=== PATIENT | male | born 1955 | race Caucasian/White ===

== ENCOUNTER 2016-11-30 11:25 | Emergency (ER) | payer BC ==
[2016-11-30] MEDS ORDERED: HYDROmorphone 1 MG/ML 1 ML SYRINGE IVP STA (11:33)
[2016-11-30] MEDS ORDERED: SODIUM CHLORIDE 0.9% 1,000 ML IV STA (11:33)
[2016-11-30] MEDS ORDERED: RX INFO: IV CONTRAST WAS GIVEN 1 EACH MISC MISCELLANE PRN (11:33)
[2016-11-30] MEDS ORDERED: ONDANSETRON 4 MG/2 ML VIAL IVP STA (11:33)
[2016-11-30] MEDS ORDERED: LABETALOL SYRINGE 5 MG/ML IVP STA (11:37)
--- NOTE | 2016-11-30 11:40 | ED ---
General Adult HPI - General Chief complaint: Abdominal Pain Stated complaint: poss Kidney Stone Time Seen by Provider: 11/30/16 11:30 Source: patient, RN notes reviewed Mode of arrival: ambulatory Limitations: no limitations - History of Present Illness Initial comments: This is a 61-year-old male who presents to the emergency department complaining of back pain bilaterally that was sudden in onset. Patient states the pain is severe. She also complains of some mid epigastric abdominal pain. Patient denies nausea vomiting or diarrhea. Patient states his only past medical history is high blood pressure. Patient states the pain is a 10 out of 10 currently. Patient denies any chest pain or palpitations. Patient denies any difficulty breathing or shortness of breath. Patient denies any headache patient denies numbness weakness. Patient denies any lightheadedness dizziness or near syncopal episode. Patient denies any neck pain. Patient states he has not had similar pain in the past. Patient denies any dysuria hematuria urinary frequency. - Related Data Home Medications Medication Instructions Recorded Confirmed Ibuprofen [Motrin] 400 mg PO Q6HR PRN 11/30/16 11/30/16 Lisinopril [Prinivil] 10 mg PO DAILY 11/30/16 11/30/16 Previous Rx's Medication Instructions Recorded Ibuprofen [Motrin] 600 mg PO Q6HR PRN #20 tab 11/30/16 Orphenadrine [Norflex] 100 mg PO Q12H #20 tablet.er 11/30/16 Allergies Allergy/AdvReac Type Severity Reaction Status Date / Time No Known Allergies Allergy Verified 11/30/16 11:28 Review of Systems ROS Statement: Those systems with pertinent positive or pertinent negative responses have been documented in the HPI. ROS Other: All systems not noted in ROS Statement are negative. Past Medical History Past Medical History: Hypertension History of Any Multi-Drug Resistant Organisms: None Reported Past Surgical History: No Surgical Hx Reported Past Psychological History: No Psychological Hx Reported Smoking Status: Never smoker Past Alcohol Use History: Occasional Past Drug Use History: None Reported General Exam - General Exam Comments Initial Comments: GENERAL: Patient is well-developed and well-nourished. Patient is nontoxic and well- hydrated and is in moderate distress. ENT: Neck is soft and supple. No significant lymphadenopathy is noted. Oropharynx is clear. Moist mucous membranes. Neck has full range of motion without eliciting any pain. EYES: The sclera were anicteric and conjunctiva were pink and moist. Extraocular movements were intact and pupils were equal round and reactive to light. Eyelids were unremarkable. PULMONARY: Unlabored respirations. Good breath sounds bilaterally. No audible rales rhonchi or wheezing was noted. CARDIOVASCULAR: There is a regular rate and rhythm without any murmurs gallops or rubs. ABDOMEN: Patient has epigastric and supraumbilical tenderness. I did not feel any pulsatile masses SKIN: Skin is clear with no lesions or rashes and otherwise unremarkable. NEUROLOGIC: Patient is alert and oriented x3. Cranial nerves II through XII are grossly intact. Motor and sensory are also intact. Normal speech, volume and content. Symmetrical smile. MUSCULOSKELETAL: Normal extremities with adequate strength and full range of motion. No lower extremity swelling or edema. No calf tenderness. LYMPHATICS: No significant lymphadenopathy is noted PSYCHIATRIC: Normal psychiatric evaluation. Limitations: no limitations Course Vital Signs 11/30/16 11/30/16 11/30/16 11:28 11:41 11:51 Temperature 96.8 F L Pulse Rate 74 59 L 69 Respiratory 16 16 14 Rate Blood Pressure 183/112 189/115 148/96 O2 Sat by Pulse 98 100 100 Oximetry 11/30/16 11/30/16 11/30/16 12:36 13:06 13:33 Temperature Pulse Rate 61 55 L 60 Respiratory 15 16 14 Rate Blood Pressure 143/95 144/82 147/95 O2 Sat by Pulse 98 100 98 Oximetry 11/30/16 14:36 Temperature 97.8 F Pulse Rate 79 Respiratory 15 Rate Blood Pressure 173/111 O2 Sat by Pulse 99 Oximetry Medical Decision Making - Medical Decision Making EKG shows sinus rhythm at 69 bpm VT interval 146 QRS is 86 QT interval is 408 QTC is 437. Patient's EKG shows no ST segment elevation or depression or T- wave abnormality is noted. CT of the abdomen and pelvis was normal. Patient received Dilaudid and Toradol the Toradol really seem to help him and he states his pain is on was completely gone at this time. - Lab Data Result diagrams: 11/30/16 11:40 11/30/16 11:40 Lab Results 11/30/16 11/30/16 11/30/16 Range/Units 11:40 11:40 11:40 WBC 7.3 (3.8-10.6) k/uL RBC 5.12 (4.30-5.90) m/uL Hgb 16.0 (13.0-17.5) gm/dL Hct 46.8 (39.0-53.0) % MCV 91.5 (80.0-100.0) fL MCH 31.3 (25.0-35.0) pg MCHC 34.2 (31.0-37.0) g/dL RDW 12.7 (11.5-15.5) % Plt Count 211 (150-450) k/uL Neutrophils % 73 % Lymphocytes % 13 % Monocytes % 8 % Eosinophils % 2 % Basophils % 1 % Neutrophils # 5.3 (1.3-7.7) k/uL Lymphocytes # 1.0 (1.0-4.8) k/uL Monocytes # 0.6 (0-1.0) k/uL Eosinophils # 0.2 (0-0.7) k/uL Basophils # 0.1 (0-0.2) k/uL PT (9.0-12.0) sec INR (<1.1) APTT (22.0-30.0) sec Sodium 140 (137-145) mmol/L Potassium 4.2 (3.5-5.1) mmol/L Chloride 105 (98-107) mmol/L Carbon Dioxide 25 (22-30) mmol/L Anion Gap 10 mmol/L BUN 13 (9-20) mg/dL Creatinine 0.85 (0.66-1.25) mg/dL Est GFR (MDRD) Af Amer >60 (>60 ml/min/1.73 sqM) Est GFR (MDRD) Non-Af >60 (>60 ml/min/1.73 sqM) Glucose 117 H (74-99) mg/dL Plasma Lactic Acid Apolinar 1.9 (0.7-2.0) mmol/L Calcium 8.7 (8.4-10.2) mg/dL Total Bilirubin 0.7 (0.2-1.3) mg/dL AST 29 (17-59) U/L ALT 43 (21-72) U/L Alkaline Phosphatase 118 (38-126) U/L Total Protein 7.4 (6.3-8.2) g/dL Albumin 4.3 (3.5-5.0) g/dL Amylase 61 (30-110) U/L Lipase 71 (23-300) U/L Urine Color Urine Appearance (Clear) Urine pH (5.0-8.0) Ur Specific [place] (1.001-1.035) Urine Protein (Negative) Urine Glucose (UA) (Negative) Urine Ketones (Negative) Urine Blood (Negative) Urine Nitrate (Negative) Urine Bilirubin (Negative) Urine Urobilinogen (<2.0) mg/dL Ur Leukocyte Esterase (Negative) Urine RBC (0-5) /hpf Urine WBC (0-5) /hpf Urine Mucus (None) /hpf 11/30/16 11/30/16 Range/Units 11:40 12:55 WBC (3.8-10.6) k/uL RBC (4.30-5.90) m/uL Hgb (13.0-17.5) gm/dL Hct (39.0-53.0) % MCV (80.0-100.0) fL MCH (25.0-35.0) pg MCHC (31.0-37.0) g/dL RDW (11.5-15.5) % Plt Count (150-450) k/uL Neutrophils % % Lymphocytes % % Monocytes % % Eosinophils % % Basophils % % Neutrophils # (1.3-7.7) k/uL Lymphocytes # (1.0-4.8) k/uL Monocytes # (0-1.0) k/uL Eosinophils # (0-0.7) k/uL Basophils # (0-0.2) k/uL PT 10.0 (9.0-12.0) sec INR 1.0 (<1.1) APTT 24.0 (22.0-30.0) sec Sodium (137-145) mmol/L Potassium (3.5-5.1) mmol/L Chloride (98-107) mmol/L Carbon Dioxide (22-30) mmol/L Anion Gap mmol/L BUN (9-20) mg/dL Creatinine (0.66-1.25) mg/dL Est GFR (MDRD) Af Amer (>60 ml/min/1.73 sqM) Est GFR (MDRD) Non-Af (>60 ml/min/1.73 sqM) Glucose (74-99) mg/dL Plasma Lactic Acid Apolinar (0.7-2.0) mmol/L Calcium (8.4-10.2) mg/dL Total Bilirubin (0.2-1.3) mg/dL AST (17-59) U/L ALT (21-72) U/L Alkaline Phosphatase (38-126) U/L Total Protein (6.3-8.2) g/dL Albumin (3.5-5.0) g/dL Amylase (30-110) U/L Lipase (23-300) U/L Urine Color Light Yellow Urine Appearance Clear (Clear) Urine pH 5.5 (5.0-8.0) Ur Specific [place] 1.039 H (1.001-1.035) Urine Protein Negative (Negative) Urine Glucose (UA) Negative (Negative) Urine Ketones Negative (Negative) Urine Blood Trace H (Negative) Urine Nitrate Negative (Negative) Urine Bilirubin Negative (Negative) Urine Urobilinogen <2.0 (<2.0) mg/dL Ur Leukocyte Esterase Negative (Negative) Urine RBC 3 (0-5) /hpf Urine WBC <1 (0-5) /hpf Urine Mucus Rare H (None) /hpf Disposition Clinical Impression: Lumbar strain Disposition: HOME SELF-CARE Condition: Good Instructions: Low Back Strain (ED) Prescriptions: Ibuprofen [Motrin] 600 mg PO Q6HR PRN #20 tab PRN Reason: For pain Orphenadrine [Norflex] 100 mg PO Q12H #20 tablet.er Referrals: Jose Guadalupe Tapia MD [Primary Care Provider] - 1-2 days Time of Disposition: 14:12
[2016-11-30 11:51] LABS: Basophils # (A) 0.1 k/uL (0-0.2); Basophils % (A) 1 %; CH 31.8; CHCM 34.9; Eosinophils # (A) 0.2 k/uL (0-0.7); Eosinophils % (A) 2 %; HCT 46.8 % (39.0-53.0); HDW 2.66; Luc # (Auto) 0.21; Luc % (Auto) 3; Lymphocytes % (A) 13 %; MCH 31.3 pg (25.0-35.0); MCHC 34.2 g/dL (31.0-37.0); MCV 91.5 fL (80.0-100.0); Monocytes # (A) 0.6 k/uL (0-1.0); Monocytes % (A) 8 %; Neutrophils # (A) 5.3 k/uL (1.3-7.7); Neutrophils % (A) 73 %; RBC 5.12 m/uL (4.30-5.90); RDW 12.7 % (11.5-15.5); WBC 7.3 k/uL (3.8-10.6); WBC (Perox) 6.94
[2016-11-30 12:05] LABS: ALT 43 U/L (21-72); AST 29 U/L (17-59); Alkaline Phosphatase 118 U/L (38-126); Amylase 61 U/L (30-110); Anion Gap 10 mmol/L; Blood Urea Nitrogen 13 mg/dL (9-20); Calcium 8.7 mg/dL (8.4-10.2); Carbon Dioxide 25 mmol/L (22-30); Chloride 105 mmol/L (98-107); Glucose 117 mg/dL (74-99); Non-African American GFR(MDRD) >60 (>60 ml/min/1.73 sqM); Potassium 4.2 mmol/L (3.5-5.1); Sodium 140 mmol/L (137-145); Total Bilirubin 0.7 mg/dL (0.2-1.3); Total Protein 7.4 g/dL (6.3-8.2)
--- NOTE | 2016-11-30 12:32 | CT ---
EXAMINATION TYPE: CT abdomen pelvis w con DATE OF EXAM: 11/30/2016 12:16 PM COMPARISON: NONE HISTORY: Mid Abdominal pain with bloating CT DLP: 1636 mGycm, Automated Exposure Control for Dose Reduction was Utilized. CONTRAST: CT scan of the abdomen and pelvis is performed without oral and with IV Contrast, patient injected wi th 100 mL of Omnipaque 300. FINDINGS: LUNG BASES: No significant abnormality is appreciated. LIVER/GB: No significant abnormality is appreciated. PANCREAS: No significant abnormality is seen. SPLEEN: No significant abnormality is seen. ADRENALS: No significant abnormality is seen. KIDNEYS: No significant abnormality is seen. BOWEL: Evaluation of bowel is suboptimal due to lack of enteric contrast. There is no suspicious smal l or large bowel dilatation identified. Appendix is felt within normal limits ascending from the cecu m. Scattered diverticula throughout the colon are identified. There is mild to moderate wall thickening involving the left colon and proximal to mid sigmoid colon as well as involving the rectum. Finding c ould be product of poor distention but a colitis needs to BE excluded clinically. PROSTATE/SEMINAL VESICLES: Seminal vesicles are bulky is slightly prominent, indistinct margin from p rostate gland is noted. A few scattered pelvic phleboliths are present. LYMPH NODES: No greater than 1cm abdominal or pelvic lymph nodes are appreciated. OSSEOUS STRUCTURES: Vacuum disc phenomenon lower lumbar levels is seen. There is multilevel spurring in the mid thoracic spine identified. OTHER: No significant additional abnormality is seen. IMPRESSION: Cannot exclude a multifocal mild colitis on this study performed without oral contrast ot herwise no significant finding is seen to account for patient's symptoms.
[2016-11-30] MEDS ORDERED: KETOROLAC 60 MG/2 ML VIAL IVP STA (12:40)
[2016-11-30 13:19] LABS: Appearance,Urine Clear (Clear); Bilirubin,Urine Negative (Negative); Glucose,Urine (UA) Negative (Negative); Ketones,Urine Negative (Negative); Leukocyte Esterase,Urine Negative (Negative); Mucus,Urine Rare /hpf; Nitrite,Urine Negative (Negative); PH, Urine 5.5 (5.0-8.0); Particle Count 416; Protein,Urine Negative (Negative); RBC,Urine 3 /hpf (0-5); Specific Gravity,Urine 1.039 (1.001-1.035); UA Billing (MACRO vs. MICRO) MICRO; Urobilinogen,Urine <2.0 mg/dL (<2.0); WBC,Urine <1 /hpf (0-5)
[2016-11-30] MEDS ORDERED: ORPHENADRINE 30 MG/ML 2 ML VIAL IM STA (14:14)
[2016-11-30] MEDS ORDERED: LISINOPRIL 10 MG TAB PO STA (15:05)
[2016-11-30 15:12] VITALS: BP 175/109; PULSE 57; RESP 14; TEMP 98
== END 2016-11-30 15:15 | disposition home or self-care (01) ==
LOC: EC 11:25
DX: S39.012A Strain of muscle, fascia and tendon of lower back, initial encounter (principal); R10.13 Epigastric pain; I10 Essential (primary) hypertension; Z79.899 Other long term (current) drug therapy; X58.XXXA Exposure to other specified factors, initial encounter
CPT/HCPCS: 99284; 96374; 96375 ×3; 96361; 96372; 36415; 93005; 80053; 82150; 83605; 83690; 85025; 85610; 85730; 81001; 74177; J2360; J2405; J1885; J1170; Q9967

== ENCOUNTER → 2022-10-20 | Outpatient (CLI) | payer BC ==
[2022-10-21 14:37] LABS: Alt. alternata IgE Class CLASS 0; Alternaria alternata IgE <0.10 kU/L (<0.10); Asperg. fumagatus IgE <0.10 kU/L (<0.10); Asperg. fumagatus IgE Class CLASS 0; Candida albicans IgE Class CLASS 0; Clad herbarum IgE <0.10 kU/L (<0.10); Clad herbarum IgE Class CLASS 0; Latex IgE Class CLASS 0; Mucor racemosus IgE <0.10 kU/L (<0.10); Mucor racemosus IgE Class CLASS 0; Penicillium chrysogenum IgE <0.10 kU/L (<0.10); Penicillium chrysogenum IgE Cl CLASS 0
== END | disposition home or self-care (01) ==
LOC: LABWHC1 12:37
PROVIDERS: ATTEND Internal Medicine Sleep Medicine
DX: B44.81 Allergic bronchopulmonary aspergillosis (principal)
CPT/HCPCS: 36415; 86001; 86003; 86606; 86609

== ENCOUNTER 2023-05-03 18:34 | Inpatient (IN) | payer OTHER, MEDICARE ==
[2023-05-03] MEDS ORDERED: KETOROLAC 15 MG/ML 1 ML VIAL IVP STA (19:11)
[2023-05-03] MEDS ORDERED: SODIUM CHLORIDE 0.9% 1,000 ML IV STA (19:11)
--- NOTE | 2023-05-03 19:33 | ED ---
Abdominal Pain HPI - General Chief Complaint: Abdominal Pain Stated Complaint: abd/back pain Time Seen by Provider: 05/03/23 18:57 Source: patient, RN notes reviewed Mode of arrival: ambulatory Limitations: no limitations - History of Present Illness Initial Comments: This is a 68-year-old male who presents to the emergency department for abdominal pain. States that around 6 AM this morning, he started to develop pain in the mid abdomen that wrapped around into the back. He tried to go work a 4 hour shift, and states that the pain persisted. He did have a few episodes of nausea and vomiting as well. Denies any history of similar symptoms in the past. States that he had chili for dinner last night, which is not out of the ordinary for him. States that he has been belching much more than normal today. He had a bowel movement this morning but has not passed gas in several hours. Denies any fevers, chills, sore throat, cough, dyspnea, chest pain, palpitations, diarrhea, or headaches. Pt is a Oriental orthodox - no blood transfusions MD Complaint: abdominal pain - Related Data Home Medications Medication Instructions Recorded Confirmed Atorvastatin [Lipitor] 20 mg PO HS 05/03/23 05/03/23 Losartan [Cozaar] 50 mg PO DAILY 05/03/23 05/03/23 Montelukast Sodium 10 mg PO HS 05/03/23 05/03/23 Omeprazole [PriLOSEC] 20 mg PO DAILY PRN 05/03/23 05/03/23 Allergies Allergy/AdvReac Type Severity Reaction Status Date / Time No Known Allergies Allergy Verified 05/03/23 18:40 Review of Systems ROS Statement: Those systems with pertinent positive or pertinent negative responses have been documented in the HPI. ROS Other: All systems not noted in ROS Statement are negative. Past Medical History Past Medical History: Hyperlipidemia, Hypertension History of Any Multi-Drug Resistant Organisms: None Reported Past Surgical History: No Surgical Hx Reported Past Psychological History: No Psychological Hx Reported Past Alcohol Use History: Occasional Past Drug Use History: None Reported General Exam Limitations: no limitations General appearance: alert, in no apparent distress Head exam: Present: atraumatic, normocephalic, normal inspection Respiratory exam: Present: normal lung sounds bilaterally. Absent: respiratory distress, wheezes, rales, rhonchi, stridor Cardiovascular Exam: Present: regular rate, normal rhythm, normal heart sounds. Absent: systolic murmur, diastolic murmur, rubs, gallop, clicks GI/Abdominal exam: Present: soft, tenderness (centralized), normal bowel sounds. Absent: distended, guarding, rebound, rigid Neurological exam: Present: alert, oriented X3, CN II-XII intact Psychiatric exam: Present: normal affect, normal mood Skin exam: Present: warm, dry, intact, normal color. Absent: rash Course Vital Signs 05/03/23 05/03/23 05/03/23 18:37 19:00 20:01 Temperature 98.1 F Pulse Rate 73 68 64 Respiratory 16 15 18 Rate Blood Pressure 181/114 166/108 177/110 O2 Sat by Pulse 97 97 97 Oximetry 05/03/23 05/03/23 05/03/23 21:00 22:32 22:54 Temperature Pulse Rate 63 62 62 Respiratory 16 24 16 Rate Blood Pressure 168/101 181/120 165/107 O2 Sat by Pulse 98 98 97 Oximetry 05/03/23 05/03/23 23:21 23:36 Temperature Pulse Rate 61 63 Respiratory 16 16 Rate Blood Pressure 156/106 149/97 O2 Sat by Pulse 97 97 Oximetry Medical Decision Making - Medical Decision Making This is a 68-year-old male who presents to the emergency department for abdominal pain. Was pt. sent in by a medical professional or institution? @ -No Did you speak to anyone other than the patient for history? @ -No Did you review nursing and triage notes? @ -Yes, and I agree, it is accurate with regards to the patient's symptoms. Were old charts reviewed? @ -No Differential Diagnosis? @ -Differential Abdominal Pain Men: Appendicitis, cholecystitis, diverticulosis, ischemic bowel, pancreatitis, hepatitis, UTI, gastroenteritis, AAA, incarcerated hernia, bowel obstruction, constipation, inflammatory bowel, hepatitis, peptic ulcer disease, splenic infarction, perforated viscus, testicular torsion, this is not meant to be an all-inclusive list EKG interpreted by me (3pts min.)? @ -EKG interpreted by me demonstrating the following: Sinus rhythm. Ventricular rate 67 beats per minute, NE interval 173 ms, QRS duration 87 ms, QTC 409 ms. X-rays interpreted by me (1pt min.)? @ -Abdominal x-ray obtained. My interpretation confirms appropriate placement of NG tube. CT interpreted by me (1pt min.)? @ -Computed tomography scan of the abdomen and pelvis obtained. My interpretation identifies dilated small bowel loops. U/S interpreted by me (1pt. min.)? @ -Not obtained What testing was considered but not performed? (CT, X-rays, U/S, labs)? Why? @ -None What meds were considered but not given? Why? @ -None Did you discuss the management of the patient with other professionals? @ -Yes, Jeff Fuchs with [facility], who accepts the patient for admission. Did you reconcile home meds? @ -Yes Was smoking cessation discussed for >3mins.? @ -No Was critical care preformed (if so, how long)? @ -No Were there social determinants of health that impacted care today? How? (Homelessness, low income, unemployed, alcoholism, drug addiction, transportation, low edu. Level, literacy, decrease access to med. care, senior living, rehab)? @ -No Was there de-escalation of care discussed even if they declined? (Discuss DNR or withdrawal of care, Hospice)? @ -No What co-morbidities impacted this encounter? (DM, HTN, Smoking, COPD, CAD, Cancer, CVA, Hep., AIDS, mental health diagnosis, sleep apnea, morbid obesity)? @ -HTN, HLD Was patient admitted / discharged? @ -Admitted. Lab work obtained and found to be nonactionable. Given the progressive nature of the patient's pain, his age, and because he has stopped passing gas, computed tomography scan of the abdomen and pelvis was obtained. This revealed multiple dilated small bowel loops suspicious for partial or early complete small bowel obstruction. NG tube was placed and placement was con firmed with an abdominal x-ray. It was then hooked up to intermittent low wall suction. Patient kept NPO for the mean time. BP was fairly elevated in the emergency department. He was subsequently given Hydralazine, 10mg and prn hydralazine was ordered with instructions to administer q6h prn BP >160 systolically. Patient admitted to medicine with general surgery consult for small bowel obstruction. Of note, patient is a Oriental orthodox and cannot receive blood products. Undiagnosed new problem with uncertain prognosis? @ -None Drug Therapy requiring intensive monitoring for toxicity (Heparin, Nitro, Insulin, Cardizem)? @ -None Were any procedures done? @ -None Diagnosis/symptom? @ -Small bowel obstruction Acute, or Chronic, or Acute on Chronic? @ -Acute Uncomplicated (without systemic symptoms) or Complicated (systemic symptoms)? @ -Complicated Side effects of treatment? @ -None Exacerbation, Progression, or Severe Exacerbation] @ -Not applicable Poses a threat to life or bodily function? @ -Yes This case was discussed in detail with the attending ED physician, Dr. Perez. Presentation, findings, and treatment plan discussed in detail as well. - Lab Data Result diagrams: 05/03/23 19:59 05/03/23 19:59 Lab Results 05/03/23 05/03/23 05/03/23 Range/Units 19:59 19:59 19:59 WBC 8.2 (3.8-10.6) k/uL RBC 5.07 (4.30-5.90) m/uL Hgb 16.1 (13.0-17.5) gm/dL Hct 46.6 (39.0-53.0) % MCV 92.0 (80.0-100.0) fL MCH 31.7 (25.0-35.0) pg MCHC 34.5 (31.0-37.0) g/dL RDW 12.2 (11.5-15.5) % Plt Count 194 (150-450) k/uL MPV 7.7 Neutrophils % 82 % Lymphocytes % 9 % Monocytes % 6 % Eosinophils % 1 % Basophils % 1 % Neutrophils # 6.7 (1.3-7.7) k/uL Lymphocytes # 0.7 L (1.0-4.8) k/uL Monocytes # 0.5 (0-1.0) k/uL Eosinophils # 0.1 (0-0.7) k/uL Basophils # 0.1 (0-0.2) k/uL Sodium 131 L (137-145) mmol/L Potassium 4.5 (3.5-5.1) mmol/L Chloride 98 (98-107) mmol/L Carbon Dioxide 25 (22-30) mmol/L Anion Gap 8 mmol/L BUN 17 (9-20) mg/dL Creatinine 0.74 (0.66-1.25) mg/dL Est GFR (CKD-EPI)AfAm >90 (>60 ml/min/1.73 sqM) Est GFR (CKD-EPI)NonAf >90 (>60 ml/min/1.73 sqM) Glucose 132 H (74-99) mg/dL Plasma Lactic Acid Apolinar 1.3 (0.7-2.0) mmol/L Calcium 9.0 (8.4-10.2) mg/dL Total Bilirubin 1.0 (0.2-1.3) mg/dL AST 26 (17-59) U/L ALT 25 (4-49) U/L Alkaline Phosphatase 113 (38-126) U/L Troponin I (0.000-0.034) ng/mL Total Protein 7.4 (6.3-8.2) g/dL Albumin 4.2 (3.5-5.0) g/dL Amylase 56 (30-110) U/L Lipase 58 (23-300) U/L Urine Color Urine Appearance (Clear) Urine pH (5.0-8.0) Ur Specific [place] (1.001-1.035) Urine Protein (Negative) Urine Glucose (UA) (Negative) Urine Ketones (Negative) Urine Blood (Negative) Urine Nitrite (Negative) Urine Bilirubin (Negative) Urine Urobilinogen (<2.0) mg/dL Ur Leukocyte Esterase (Negative) Urine RBC (0-5) /hpf Ur Squamous Epith Cells (0-4) /hpf Urine Mucus (None) /hpf 05/03/23 05/03/23 Range/Units 19:59 21:17 WBC (3.8-10.6) k/uL RBC (4.30-5.90) m/uL Hgb (13.0-17.5) gm/dL Hct (39.0-53.0) % MCV (80.0-100.0) fL MCH (25.0-35.0) pg MCHC (31.0-37.0) g/dL RDW (11.5-15.5) % Plt Count (150-450) k/uL MPV Neutrophils % % Lymphocytes % % Monocytes % % Eosinophils % % Basophils % % Neutrophils # (1.3-7.7) k/uL Lymphocytes # (1.0-4.8) k/uL Monocytes # (0-1.0) k/uL Eosinophils # (0-0.7) k/uL Basophils # (0-0.2) k/uL Sodium (137-145) mmol/L Potassium (3.5-5.1) mmol/L Chloride (98-107) mmol/L Carbon Dioxide (22-30) mmol/L Anion Gap mmol/L BUN (9-20) mg/dL Creatinine (0.66-1.25) mg/dL Est GFR (CKD-EPI)AfAm (>60 ml/min/1.73 sqM) Est GFR (CKD-EPI)NonAf (>60 ml/min/1.73 sqM) Glucose (74-99) mg/dL Plasma Lactic Acid Apolinar (0.7-2.0) mmol/L Calcium (8.4-10.2) mg/dL Total Bilirubin (0.2-1.3) mg/dL AST (17-59) U/L ALT (4-49) U/L Alkaline Phosphatase (38-126) U/L Troponin I <0.012 (0.000-0.034) ng/mL Total Protein (6.3-8.2) g/dL Albumin (3.5-5.0) g/dL Amylase (30-110) U/L Lipase (23-300) U/L Urine Color Yellow Urine Appearance Clear (Clear) Urine pH 6.5 (5.0-8.0) Ur Specific [place] 1.020 (1.001-1.035) Urine Protein Negative (Negative) Urine Glucose (UA) Negative (Negative) Urine Ketones 1+ H (Negative) Urine Blood Small H (Negative) Urine Nitrite Negative (Negative) Urine Bilirubin Negative (Negative) Urine Urobilinogen <2.0 (<2.0) mg/dL Ur Leukocyte Esterase Negative (Negative) Urine RBC 5 (0-5) /hpf Ur Squamous Epith Cells <1 (0-4) /hpf Urine Mucus Occasional H (None) /hpf - Radiology Data Radiology results: report reviewed, image reviewed Disposition Clinical Impression: Small bowel obstruction Disposition: ADMITTED IP TO THIS HOSP
[2023-05-03 20:21] LABS: Basophils # (A) 0.1 k/uL (0-0.2); Basophils % (A) 1 %; Eosinophils # (A) 0.1 k/uL (0-0.7); Eosinophils % (A) 1 %; HCT 46.6 % (39.0-53.0); HGB 16.1 gm/dL (13.0-17.5); Lymphocytes # (A) 0.7 k/uL (1.0-4.8); Lymphocytes % (A) 9 %; MCH 31.7 pg (25.0-35.0); MCHC 34.5 g/dL (31.0-37.0); Mean Platelet Volume 7.7; Monocytes # (A) 0.5 k/uL (0-1.0); Monocytes % (A) 6 %; Neutrophils # (A) 6.7 k/uL (1.3-7.7); Neutrophils % (A) 82 %; Platelet Count 194 k/uL (150-450); RBC 5.07 m/uL (4.30-5.90); RDW 12.2 % (11.5-15.5); WBC 8.2 k/uL (3.8-10.6)
[2023-05-03 20:38] LABS: ALT 25 U/L (4-49); AST 26 U/L (17-59); African American GFR (CKD) >90 (>60 ml/min/1.73 sqM); Albumin 4.2 g/dL (3.5-5.0); Alkaline Phosphatase 113 U/L (38-126); Amylase 56 U/L (30-110); Anion Gap 8 mmol/L; Blood Urea Nitrogen 17 mg/dL (9-20); Carbon Dioxide 25 mmol/L (22-30); Chloride 98 mmol/L (98-107); Glucose 132 mg/dL (74-99); Lipase 58 U/L (23-300); Non-African American GFR(CKD) >90 (>60 ml/min/1.73 sqM); Potassium 4.5 mmol/L (3.5-5.1); Sodium 131 mmol/L (137-145); Total Protein 7.4 g/dL (6.3-8.2)
[2023-05-03] MEDS ORDERED: MORPHINE SULFATE 2 MG/ML SYRINGE IVP STA (21:08)
--- NOTE | 2023-05-03 21:23 | CT ---
EXAMINATION TYPE: CT abdomen pelvis w con CT DLP: 1774 mGycm, Automated exposure control for dose reduction was used. DATE OF EXAM: 05/03/2023 9:04 PM COMPARISON: 11/30/2016 CLINICAL INDICATION:Male, 68 years old with history of abdominal pain, acute, nonlocalized; Upper abd ominal pain that radiates into his back TECHNIQUE: Axial CT of the abdomen and pelvis. Sagittal and coronal reformats were created on a [employer] workstation. Contrast used:100 ml mL of Isovue 300 with IV Contrast, (none if empty) Oral contrast used: without Oral Contrast (none if empty) FINDINGS: LOWER CHEST: Unremarkable ABDOMEN LIVER: Unremarkable GALLBLADDER AND BILE DUCTS: Unremarkable. PANCREAS: Within normal limits. No evidence for pancreatitis. SPLEEN: Unremarkable. ADRENAL GLANDS: Unremarkable. KIDNEYS AND URETERS: No evidence of hydronephrosis or renal calculus. The ureters are unremarkable. PELVIS BLADDER: Unremarkable REPRODUCTIVE: Unremarkable. ABDOMEN & PELVIS STOMACH AND BOWEL: Dilated loops of small bowel in the upper abdomen dilated up to 3.1 cm. Relative n ondistention of the distal loops of bowel. Transition point not definitively visualized Scattered col onic diverticula. PERITONEUM/RETROPERITONEUM: No evidence of pneumoperitoneum or free fluid. VASCULATURE: No evidence of aortic aneurysm. MUSCULOSKELETAL: No acute osseous abnormalities LYMPH NODES: No gross evidence for lymphadenopathy. SOFT TISSUE/ABDOMINAL WALL: Fatty changes at bilateral inguinal canals. IMPRESSION: 1. Multiple dilated loops of small bowel findings suspicious for partial or early complete bowel obs truction. Clinical correlation and consideration for dedicated small bowel follow-through is recommen ded. Transition point not definitively visualized. 2. No evidence for aortic dissection or aortic aneurysm. 3. Colonic diverticulosis.
[2023-05-03 21:33] LABS: Appearance,Urine Clear (Clear); Bilirubin,Urine Negative (Negative); Blood,Urine Small (Negative); Color,Urine Yellow; Glucose,Urine (UA) Negative (Negative); Ketones,Urine 1+ (Negative); Leukocyte Esterase,Urine Negative (Negative); Mucus,Urine Occasional /hpf; Nitrite,Urine Negative (Negative); PH, Urine 6.5 (5.0-8.0); Protein,Urine Negative (Negative); RBC,Urine 5 /hpf (0-5); Squamous Epithelial Cell,Urine <1 /hpf (0-4); Urobilinogen,Urine <2.0 mg/dL (<2.0)
[2023-05-03] MEDS ORDERED: hydrALAZINE HCL 20 MG/ML 1 ML VIAL IVP STA (21:50)
[2023-05-03] MEDS ORDERED: HYDROmorphone 1 MG/ML 1 ML SYRINGE IVP PRN (21:51)
[2023-05-03] MEDS ORDERED: NALOXONE 0.4 MG/ML 1 ML VIAL IV PRN (21:51)
[2023-05-03] MEDS ORDERED: HYDROmorphone 0.5 MG/0.5 ML SYRINGE IVP PRN (21:51)
[2023-05-03] MEDS ORDERED: ACETAMINOPHEN TAB 325 MG TAB PO PRN (21:51)
[2023-05-03] MEDS: MONTELUKAST 10 MG TAB PO SCH (22:13)
[2023-05-03] MEDS: ATORVASTATIN 20 MG TAB PO SCH (22:13)
[2023-05-03] MEDS: SODIUM CHLORIDE 0.9% 1,000 ML IV SCH (22:31)
[2023-05-03] MEDS ORDERED: hydrALAZINE HCL 20 MG/ML 1 ML VIAL IVP PRN (23:38)
--- NOTE | 2023-05-04 00:27 | XR ---
EXAM: XR Abdomen, 1 View CLINICAL HISTORY: ITS.REASON XR Reason: Confirm NG tube placement TECHNIQUE: Frontal supine view of the abdomen/pelvis. COMPARISON: No relevant prior studies available. IMPRESSION: Esophagogastric tube terminates within the gastric body.
[2023-05-04 02:27] LABS: Glucose,Whole Blood 112 mg/dL (70-110)
[2023-05-04] MEDS: ONDANSETRON 4 MG/2 ML VIAL IVP PRN ×2 (07:51→18:38)
[2023-05-04] MEDS: SODIUM CHLORIDE 0.9% 1,000 ML IV SCH ×2 (10:03→14:00)
[2023-05-04] MEDS: LOSARTAN 50 MG TAB PO SCH (10:07)
[2023-05-04] MEDS: PANTOPRAZOLE 40 MG/10 ML VIAL IV SCH (10:07)
[2023-05-04] MEDS: KETOROLAC 15 MG/ML 1 ML VIAL IVP PRN ×2 (11:11→18:38)
--- NOTE | 2023-05-04 11:56 | HP ---
HISTORY AND PHYSICAL CHIEF COMPLAINT: Abdominal pain. HISTORY OF PRESENT ILLNESS: This is a 68-year-old gentleman with a past medical history of multiple medical problems, admitted with abdominal pain. The pain was always in the mid abdomen. The patient has suspected partial small bowel obstruction. NG tube was inserted. The patient had a bowel movement today. The patient is improving. There is no history of any fever, rigors, or chills. PAST MEDICAL HISTORY: Reviewed and include hypertension, hyperlipidemia. HOME MEDICATIONS: Reviewed and include Cozaar. Dose and rest of medications reviewed. ALLERGIES: None. FAMILY HISTORY: No history of heart disease or strokes in the family. SOCIAL HISTORY: Occasional alcohol. REVIEW OF SYSTEMS: A 14-point review of systems is negative except as mentioned above. PHYSICAL EXAMINATION: VITAL SIGNS: Pulse is 59, blood pressure 114/86, respirations 18. HEENT: Conjunctivae normal. NECK: No jugular venous distention. CARDIOVASCULAR: S1, S2 muffled. RESPIRATIONS: Diminished at the bases. ABDOMEN: Soft, obese, mild diffuse discomfort. No guarding. No rigidity. No masses. Bowel sounds diminished. No ascites. LEGS: No edema. NERVOUS SYSTEM: No focal deficits. JOINTS: No active deforming arthropathy. LABORATORY DATA: Reviewed. IMAGING STUDIES: CAT scan reviewed. ASSESSMENT: 1. Abdominal pain and distention, possible partial small bowel obstruction versus ileus. 2. Hypertension. 3. Hyperlipidemia. RECOMMENDATIONS: This is a 68-year-old gentleman presented with multiple complex medical issues. We will monitor the patient closely. Continue symptomatic treatment. Closely follow with Surgery. The patient apparently is improving. We will initiate clear liquids if okay with Surgery. Monitor blood pressure closely and p.r.n. hydralazine. Further recommendations to follow. MMODL / IJN: [id number] /
--- NOTE | 2023-05-04 16:03 | P.GSCN ---
History of Present Illness Consult date: 05/04/23 History of present illness: CHIEF COMPLAINT: Abdominal pain HISTORY OF PRESENT ILLNESS: This is a 68-year-old male who presented with abdominal pain that started yesterday at 6 AM. Patient reports that the pain was across the lower abdomen and wrapped around his back. He did have nausea and vomiting. She denies any past abdominal surgical history denies any history of bowel obstruction. A last colonoscopy was 10 years ago and then he had a cologuard test 6 months ago and was negative. Patient had computed tomography scan of the abdomen and pelvis that showed partial early small bowel dissection and had NG tube placed. This morning he did have a bowel movement and flatus and reports that his abdominal pain has resolved and feels hungry. PAST MEDICAL HISTORY: See below PAST SURGICAL HISTORY: See below MEDICATIONS: See below ALLERGIES: See below SOCIAL HISTORY: No illicit drug use. REVIEW OF SYSTEMS: CONSTITUTIONAL: Denies fever or chills. HEENT: Denies blurred vision, vision changes, or eye pain. Denies hemoptysis CARDIOVASCULAR: Denies chest pain or pressure. RESPIRATORY: No shortness of breath. GASTROINTESTINAL: See HPI for pertinent findings HEMATOLOGIC: Denies bleeding disorders. GENITOURINARY: Denies any blood in urine or increased urinary frequency. SKIN: Denies pruitis. Denies rash. PHYSICAL EXAM: VITAL SIGNS: Reviewed GENERAL: Well-developed in no acute distress. HEENT: No sclera icterus. Extraocular movements grossly intact. Moist buccal mucosa. Head is atraumatic, normocephalic. No nasal drainage. ABDOMEN: Soft. Nondistended. Nontender NEUROLOGIC: Alert and oriented. Cranial nerves II through XII grossly intact. LABORATORY DATA: WBC 8.2 hgb 16.1 platelets 194 Sodium 131 potassium 4.5 creatinine 0.74 Lactic acid 1.3 Urinalysis negative for infection IMAGING: Computed tomography scan abdomen and pelvis multiple dilated loops of small bowel findings suspicious for partial or early complete bowel obstruction. Transition point not definitively visualized. Colonic diverticulosis. ASSESSMENT: 1. Partial small bowel obstruction PLAN: -Patient having bowel movements and flatus. Abdominal pain resolved. We'll pull NG tube and start clear liquid diet -Continue supportive care -Encourage patient to ambulate -Advance diet to full liquids this evening. If he tolerates, anticipate discharge possibly tomorrow Physician Financial Processing Clerk note has been reviewed by physician. Signing provider agrees with the documented findings, assessment, and plan of care. Past Medical History Past Medical History: Hyperlipidemia, Hypertension History of Any Multi-Drug Resistant Organisms: None Reported Past Surgical History: No Surgical Hx Reported Additional Past Anesthesia/Blood Transfusion Reaction / Comm: Patient is a Jehovah Witness, therefore states he will not receive blood products. Past Psychological History: No Psychological Hx Reported Smoking Status: Never smoker Past Alcohol Use History: Occasional Past Drug Use History: None Reported Medications and Allergies Home Medications Medication Instructions Recorded Confirmed Type Atorvastatin [Lipitor] 20 mg PO HS 05/03/23 05/03/23 History Losartan [Cozaar] 50 mg PO DAILY 05/03/23 05/03/23 History Montelukast Sodium 10 mg PO HS 05/03/23 05/03/23 History Omeprazole [PriLOSEC] 20 mg PO DAILY PRN 05/03/23 05/03/23 History Allergies Allergy/AdvReac Type Severity Reaction Status Date / Time No Known Allergies Allergy Verified 05/03/23 18:40 Surgical - Exam Vital Signs Temp Pulse Resp BP Pulse Ox 98.1 F 73 16 181/114 97 05/03/23 18:37 05/03/23 18:37 05/03/23 18:37 05/03/23 18:37 05/03/23 18:37 Results - Labs 05/03/23 19:59 05/03/23 19:59 Abnormal Lab Results - Last 24 Hours (Table) 05/03/23 05/03/23 05/03/23 Range/Units 19:59 19:59 21:17 Lymphocytes # 0.7 L (1.0-4.8) k/uL Sodium 131 L (137-145) mmol/L Glucose 132 H (74-99) mg/dL POC Glucose (mg/dL) (70-110) mg/dL Urine Ketones 1+ H (Negative) Urine Blood Small H (Negative) Urine Mucus Occasional H (None) /hpf 05/04/23 Range/Units 02:20 Lymphocytes # (1.0-4.8) k/uL Sodium (137-145) mmol/L Glucose (74-99) mg/dL POC Glucose (mg/dL) 112 H (70-110) mg/dL Urine Ketones (Negative) Urine Blood (Negative) Urine Mucus (None) /hpf Diabetes panel 05/03/23 Range/Units 19:59 Sodium 131 L (137-145) mmol/L Potassium 4.5 (3.5-5.1) mmol/L Chloride 98 (98-107) mmol/L Carbon Dioxide 25 (22-30) mmol/L BUN 17 (9-20) mg/dL Creatinine 0.74 (0.66-1.25) mg/dL Glucose 132 H (74-99) mg/dL Calcium 9.0 (8.4-10.2) mg/dL AST 26 (17-59) U/L ALT 25 (4-49) U/L Alkaline Phosphatase 113 (38-126) U/L Total Protein 7.4 (6.3-8.2) g/dL Albumin 4.2 (3.5-5.0) g/dL Calcium panel 05/03/23 Range/Units 19:59 Calcium 9.0 (8.4-10.2) mg/dL Albumin 4.2 (3.5-5.0) g/dL Pituitary panel 05/03/23 Range/Units 19:59 Sodium 131 L (137-145) mmol/L Potassium 4.5 (3.5-5.1) mmol/L Chloride 98 (98-107) mmol/L Carbon Dioxide 25 (22-30) mmol/L BUN 17 (9-20) mg/dL Creatinine 0.74 (0.66-1.25) mg/dL Glucose 132 H (74-99) mg/dL Calcium 9.0 (8.4-10.2) mg/dL Adrenal panel 05/03/23 Range/Units 19:59 Sodium 131 L (137-145) mmol/L Potassium 4.5 (3.5-5.1) mmol/L Chloride 98 (98-107) mmol/L Carbon Dioxide 25 (22-30) mmol/L BUN 17 (9-20) mg/dL Creatinine 0.74 (0.66-1.25) mg/dL Glucose 132 H (74-99) mg/dL Calcium 9.0 (8.4-10.2) mg/dL Total Bilirubin 1.0 (0.2-1.3) mg/dL AST 26 (17-59) U/L ALT 25 (4-49) U/L Alkaline Phosphatase 113 (38-126) U/L Total Protein 7.4 (6.3-8.2) g/dL Albumin 4.2 (3.5-5.0) g/dL
[2023-05-04] MEDS: MONTELUKAST 10 MG TAB PO SCH (20:08)
[2023-05-04] MEDS: ATORVASTATIN 20 MG TAB PO SCH (20:08)
[2023-05-05] MEDS: SODIUM CHLORIDE 0.9% 1,000 ML IV SCH (06:38)
[2023-05-05 08:00] VITALS: BP 139/89; PULSE 111; RESP 18; TEMP 98.2
[2023-05-05 09:38] LABS: Basophils # (A) 0.05 X 10*3/uL (0.00-0.10); Basophils % (A) 0.7 %; Eosinophils # (A) 0.29 X 10*3/uL (0.04-0.35); Eosinophils % (A) 3.9 %; HGB 15.3 d/dL (13.0-17.0); Lymphocytes # (A) 1.07 X 10*3/uL (0.90-5.00); Lymphocytes % (A) 14.3 %; MCH 31.6 pg (27.0-32.0); Mean Platelet Volume 9.6 FL (9.5-12.2); Monocytes # (A) 0.91 X 10*3/uL (0.20-1.00); Monocytes % (A) 12.1 %; NRBC Per 100 WBC 0 X 10*3/uL (0.00-0.01); Neutrophils # (A) 5.17 X 10*3/uL (1.80-7.70); Neutrophils % (A) 68.9 %; Platelet Count 186 X 10*3/uL (140-440); RBC 4.84 X 10*6/uL (4.40-5.60); RDW 12.7 % (11.5-14.5)
[2023-05-05] MEDS: LOSARTAN 50 MG TAB PO SCH (09:51)
[2023-05-05] MEDS: PANTOPRAZOLE 40 MG/10 ML VIAL IV SCH (10:53)
[2023-05-05 11:01] LABS: BUN/Creat Ratio 9.33 Ratio (12.00-20.00); Blood Urea Nitrogen 8.4 mg/dL (9.0-27.0); Calcium 8.9 mg/dL (8.7-10.3); Carbon Dioxide 20.9 mmol/L (21.6-31.8); Chloride 104 mmol/L (96-109); Glucose 102 mg/dL (70-110); Sodium 136 mmol/L (135-145)
--- NOTE | 2023-05-05 13:16 | P.PN ---
Subjective Progress Note Date: 05/05/23 CHIEF COMPLAINT: Partial Small bowel disruption HISTORY OF PRESENT ILLNESS: Patient has no abdominal pain. He is having bowel movements and flatus. Tolerating full liquid diet. Afebrile. He has been up and ambulating. PHYSICAL EXAM: VITAL SIGNS: Reviewed. GENERAL: Well-developed in no acute distress. HEENT: No sclera icterus. Extraocular movements grossly intact. Moist buccal mucosa. Head is atraumatic, normocephalic. ABDOMEN: Soft. Nondistended. Nontender. NEUROLOGIC: Alert and oriented. Cranial nerves II through XII grossly intact. ASSESSMENT: 1. Partial small bowel obstruction PLAN: -Advance diet as tolerated -Patient can be discharged from surgical standpoint with outpatient follow-up in [address] Pham Physician Broadband Installer note has been reviewed by physician. Signing provider agrees with the documented findings, assessment, and plan of care. Objective - Vital Signs Vital signs: Vital Signs Temp 98.2 F 05/05/23 07:39 Pulse 111 H 05/05/23 07:39 Resp 18 05/05/23 07:39 BP 139/89 05/05/23 07:39 Pulse Ox 94 L 05/05/23 07:39 FiO2 Intake & Output 05/04/23 05/05/23 05/05/23 18:59 06:59 18:59 Other: Voiding Method Toilet Urinal # Voids 1 # Bowel Movements 1 - Labs CBC & Chem 7: 05/05/23 06:53 05/05/23 06:53
--- NOTE | 2023-05-06 09:16 | CDI ---
Documentation Clarification Form Date: 05/06/23 From: Ann Flores Admit Date: 05/03/2023 09:31:00 PM Patient Name: Arpan Rosenthal Visit Number: [id number] Discharge Date: 05/05/2023 02:41:00 PM ATTENTION: The Clinical Documentation Specialists (CDI) and [facility] Coding Staff appreciate your assistance in clarifying documentation. Please respond to the clarification below the line at the bottom and electronically sign. The CDI & [facility] Coding staff will review the response and follow-up if needed. Please note: Queries are made part of the Legal Health Record. If you have any questions, please contact the author of this message via ITS. Dr. Radha Devine, Your patient has a low sodium of 131 per ED Note. Based on this information and the findings below, is there an additional diagnosis that is clinically appropriate for this patient? Patient history/risk factors: partial small bowel obstruction, HLD, HTN Clinical Indicators: Sodium of 131 on admission. Treatment: IV saline 0.9% 1000 ml 999/mls/hr, later on Saline 0.9% 1000ml 70 mls/hr; labs rerun on 05/05 Is there an additional diagnosis that is clinically appropriate for this patient? [ ] Hyponatremia [ ] No additional diagnosis/Not clinically significant [ ] Unable to determine [ ] Other, please specify Hyponatremia MTDD
--- NOTE | 2023-05-06 13:42 | P.DS ---
Providers Date of admission: 05/03/23 21:31 Expected date of discharge: 05/05/23 Attending physician: Radha Devine Consults: 05/03/23 21:51 Consult Physician Urgent Consulting Provider: Rosendo Pham Consult Reason/Comments: Small bowel obstruction Do you want consulting provider notified?: Yes Primary care physician: Jose Guadalupe Tapia Hospital Course: Final diagnosis Abdominal pain and distention, possible partial small bowel obstruction versus ileus Hypertension Hyperlipidemia Hyponatremia due to poor oral intake Obesity with a BMI of 30.6 GI prophylaxis DVT prophylaxis Catholic Full code Discharge disposition Patient is being discharged in a stable condition with guarded prognosis to home. Patient will follow-up with Dr. Tapia in the outpatient setting upon discharge. Patient is to follow-up outpatient with general surgery and discuss possible outpatient colonoscopy as scheduled. Patient to continue on current diet and slowly advance as tolerated over the next few days. Total time taken is greater than 35 minutes. Hospital course This is a 68-year-old male who was recently admitted with abdominal pain being closely monitored with general surgery evaluating. Concern was for suspected partial small bowel obstruction and patient had NG tube and bowel rest. Patient did have bowel movements and is passing gas and diet was advanced and tolerating with no further abdominal pain. Patient has been cleared by consultation for discharge home today. Encouraged patient to follow-up with primary care provider as well as surgery outpatient for colonoscopy. Please refer to other consultation notes for further HPI. Prescription provided for repeat labs to monitor kidney functions as well as electrolytes. Currently no reports of chest pain, shortness of breath, or palpitations. Patient is afebrile. No reports of nausea or vomiting and patient is tolerating diet. Patient will be discharged home today. Physical exam: Gen: This is a 68-year-old male who is awake, alert and oriented 3, well- developed, well-nourished, obese HEENT: Head is atraumatic, normocephalic. Pupils equal, round. Sclerae is anicteric. NECK: Supple. No JVD. No lymphadenopathy. No thyromegaly. LUNGS: Diminished breath sounds bilaterally with no wheezes or rhonchi. No intercostal retractions. HEART: S1, S2 are muffled ABDOMEN: Soft. Obese. Bowel sounds are present. No masses. No tenderness. EXTREMITIES: No pedal edema. No calf tenderness. NEUROLOGICAL: Patient is awake, alert and oriented x3. Cranial nerves 2 through 12 are grossly intact. Please refer to medication reconciliation sheet for a list of medications. The impression and plan of care has been dictated by Rosanna King, Nurse Practitioner as directed. Dr. Nilson MD I have performed a history and examination and MDM of this patient, discussed the same with the dictator, and agree with the dictator's assessment and plan as written ,documented as a scribe. Based on total visit time, I have performed more than 50% of the visit. Patient Condition at Discharge: Fair Plan - Discharge Summary Discharge Rx Participant: No New Discharge Prescriptions: New Acetaminophen Tab [Tylenol] 650 mg PO Q6HR PRN tab PRN Reason: Mild Pain Or Fever > 100.5 Continue Montelukast Sodium 10 mg PO HS Losartan [Cozaar] 50 mg PO DAILY Atorvastatin [Lipitor] 20 mg PO HS Omeprazole [PriLOSEC] 20 mg PO DAILY PRN PRN Reason: Gi Upset Discharge Medication List Atorvastatin [Lipitor] 20 mg PO HS 05/03/23 [History] Losartan [Cozaar] 50 mg PO DAILY 05/03/23 [History] Montelukast Sodium 10 mg PO HS 05/03/23 [History] Omeprazole [PriLOSEC] 20 mg PO DAILY PRN 05/03/23 [History] Acetaminophen Tab [Tylenol] 650 mg PO Q6HR PRN tab 05/05/23 [Rx] Follow up Appointment(s)/Referral(s): Jose Guadalupe Tapia MD [Primary Care Provider] - 05/17/23 1:40 pm Rosendo Pham MD [STAFF PHYSICIAN] - 05/11/23 2:50 pm Patient Instructions/Handouts: Diverticulosis (DC), Low Fiber Diet (DC), Soft Diet (DC), Bowel Obstruction (DC), Ileus (DC), Full Liquid Diet (DC) Activity/Diet/Wound Care/Special Instructions: Activity Limited until follow-up Follow-up with primary care provider and discharge Follow-up Gen. surgery outpatient and discuss possible colonoscopy outpatient Continue full liquid diet for the next few days and slowly advance as tolerated Discharge/Stand Alone Forms: Work/Release Restrictions Form Discharge Disposition: HOME SELF-CARE
== END 2023-05-05 14:41 | disposition home or self-care (01) | DRG 389 ==
LOC: EC 18:34 → 5NMEDONC 21:31
PROVIDERS: ADMIT Hospitalist; ATTEND Hospitalist
PROC: 0D9670Z Drainage of Stomach with Drainage Device, Via Natural or Artificial Opening (ICD-10-PCS; principal; 2023-05-03)
DX: K56.600 Partial intestinal obstruction, unspecified as to cause (principal); E87.1 Hypo-osmolality and hyponatremia; E78.5 Hyperlipidemia, unspecified; I10 Essential (primary) hypertension; E66.9 Obesity, unspecified; Z68.30 Body mass index [BMI] 30.0-30.9, adult; Z79.899 Other long term (current) drug therapy
CPT/HCPCS: 36415; 74018; 74177; 80048; 80053; 81001; 82150; 83605; 83690; 84484; 85025; 93005; 96361; 96374; 96375; 99285